=== PATIENT | male | born 1990 | race African-American/Black ===

== ENCOUNTER 2016-11-02 12:03 | Emergency (ER) | payer MEDICAID ==
[2016-11-02 12:43] VITALS: BP 126/78
--- NOTE | 2016-11-02 14:10 | UC ---
Eye Complaint HPI - HPI Summary HPI Summary: LEFT UPPER EYELID SWELLING. THIS HAS HAPPENED BEFORE ON RIGHT UPPER EYELID. HAS BEEN TREATING INJURY WITH WARM SOFT CANDLE WAX. - History of Current Complaint Chief Complaint: UCEye Stated Complaint: LEFT EYE COMPLAINT Time Seen by Provider: 11/02/16 12:50 Hx Obtained From: Patient Onset/Duration: Gradual Onset, Lasting Days, Still Present Timing: Intermittent Episode Lasting - DAYS Severity Initially: Mild Severity Currently: Mild Pain Intensity: 0 Pain Scale Used: 0-10 Numeric Location of Injury: Eye Lid (upper) Character: Dull Aggravating Factor(s): Nothing Alleviating Factor(s): Nothing Associated Signs And Symptoms: Positive: Swelling. Negative: Drainage (Clear), Drainage (Purulent), Vision Impairment Right, Vision Impairment Left, Fever Related History: Similar Episode, Diagnosed As: - STYE - Risk Factors Penetrating Injury Risk Factor: Negative Globe Rupture Risk Factors: Negative Acute Glaucoma Risk Factors: Negative Optic Artery Occlusion Risk Factors: Negative - Allergies/Home Medications Allergies/Adverse Reactions: Allergies Allergy/AdvReac Type Severity Reaction Status Date / Time No Known Allergies Allergy Verified 11/02/16 12:43 Home Medications: Home Medications Cod Liver Oil 1 cap PO DAILY 11/02/16 [History Confirmed 11/02/16] PMH/Surg Hx/FS Hx/Imm Hx Previously Healthy: Yes - Surgical History Surgical History: None - Family History Known Family History: Negative: Diabetes - Social History Occupation: Employed Full-time Lives: With Family Alcohol Use: Rare Substance Use Type: Marijuana Substance Use Comment - Amount & Last Used: daily usage Smoking Status (MU): Never Smoked Tobacco Review of Systems Constitutional: Negative Skin: Negative Eyes: Other - LEFT UPPER EYELID EDEMA ENT: Negative Respiratory: Negative Cardiovascular: Negative Gastrointestinal: Negative Genitourinary: Negative Motor: Negative Neurovascular: Negative Musculoskeletal: Negative Neurological: Negative Psychological: Negative All Other Systems Reviewed And Are Negative: Yes Physical Exam Triage Information Reviewed: Yes Appearance: Well-Appearing, No Pain Distress, Well-Nourished Vital Signs: Initial Vital Signs Temp 99.7 F 11/02/16 12:25 Pulse 71 11/02/16 12:25 Resp 14 11/02/16 12:25 BP 126/78 11/02/16 12:25 Pulse Ox 97 11/02/16 12:25 Vital Signs Reviewed: Yes Eyes: Positive: Other: - EDEMA LEFT SUPERIOR EYELID AT LASH MARGIN ENT Exam: Normal ENT: Positive: Normal ENT inspection, Hearing grossly normal, Pharynx normal, TMs normal Dental Exam: Normal Neck exam: Normal Neck: Positive: Supple, Nontender, No Lymphadenopathy Respiratory Exam: Normal Respiratory: Positive: Chest non-tender, Lungs clear, Normal breath sounds, No respiratory distress, No accessory muscle use Cardiovascular Exam: Normal Cardiovascular: Positive: RRR, No Murmur, Pulses Normal Abdominal Exam: Normal Abdomen Description: Positive: Nontender, No Organomegaly Musculoskeletal Exam: Normal Neurological Exam: Normal Psychological Exam: Normal Psychological: Positive: Normal Response To Family Skin Exam: Normal Eye Complaint Course/Dx - Differential Dx/Diagnosis Provider Diagnoses: RIGHT SUPERIOR EYELID STYE Discharge - Discharge Plan Condition: Stable Disposition: HOME Patient Education Materials: Prasad (ED) Referrals: [facility] [Outside] Non Staff,Doctor [Primary Care Provider] -
== END 2016-11-02 13:33 | disposition home or self-care (01) ==
LOC: UCCORT 12:03
DX: H00.011 Hordeolum externum right upper eyelid (principal); F12.90 Cannabis use, unspecified, uncomplicated
CPT/HCPCS: 99201; G0463